=== PATIENT | male | born 1970 | race Caucasian/White ===

== ENCOUNTER 2022-10-10 08:49 | Day surgery (SDC) | payer OTHER ==
[2022-10-08 14:03] VITALS: BMI 37.5
[~2022-10-10 08:49] MED LIST: LACTATED RINGERS 1,000 ML IV SCH; LIDOCAINE 1% (10MG/ML) FOR IV START INTRADERMA PRN
[2022-10-10 09:17] VITALS: RESP 16; TEMP 97.1
[2022-10-10] MEDS ORDERED: LIDOCAINE 2% INJ 20 MG/ML (2 ML VIAL) ONE (10:03)
[2022-10-10] MEDS ORDERED: PROPOFOL 10 MG/ML 20 ML VIAL IV ONE (10:03)
--- NOTE | 2022-10-10 10:08 | P.GSHP ---
History of Present Illness H&P Date: 10/10/22 Chief Complaint: Screening colonoscopy This a 52-year-old male presents today for screening colonoscopy. Patient denies a significant GI complaints Past Medical History Past Medical History: Hyperlipidemia, Hypertension Additional Past Medical History / Comment(s): gout, no rx for cholesterol, History of Any Multi-Drug Resistant Organisms: None Reported Past Surgical History: Heart Catheterization Past Anesthesia/Blood Transfusion Reactions: No Reported Reaction Smoking Status: Current every day smoker - Past Family History Mother Family Medical History: Cancer Medications and Allergies Home Medications Medication Instructions Recorded Confirmed Type Losartan Potassium [Cozaar] 100 mg PO QAM 10/08/22 10/08/22 History Losartan/Hydrochlorothiazide 1 tab PO DAILY 10/08/22 10/08/22 History [Losartan-Hctz 100-12.5 mg Tab] Allergies Allergy/AdvReac Type Severity Reaction Status Date / Time bee venom protein (honey bee) Allergy Anaphylaxis Verified 10/10/22 09:08 Penicillins Allergy Unknown Verified 10/10/22 09:08 Childhood Surgical - Exam Vital Signs Temp Pulse Resp BP Pulse Ox 97.1 F L 77 16 193/77 96 10/10/22 09:16 10/10/22 09:16 10/10/22 09:16 10/10/22 09:16 10/10/22 09:16 - General well developed, well nourished, no distress - Eyes PERRL - ENT normal pinna - Neck no masses - Respiratory normal expansion - Cardiovascular Rhythm: regular - Abdomen Abdomen: soft, non tender Assessment and Plan Assessment: We'll perform screening colonoscopy
--- NOTE | 2022-10-10 10:20 | P.OP ---
Date of Procedure: 10/10/22 Preoperative Diagnosis: Screening colonoscopy Postoperative Diagnosis: Transverse colon polyp Rectal polyp Internal and external hemorrhoids Procedure(s) Performed: Colonoscopy Anesthesia: MAC Surgeon: Jax Toney Pathology: other (Rectal polyp, transverse colon polyp) Condition: stable Disposition: PACU Description of Procedure: The patient's placed on the endoscopy table in the lateral position. He received IV sedation. Digital rectal exam performed this revealed external hemorrhoids. The flexible colonoscope was then placed patient anus and passed throughout the entire colon. The ileocecal valve was visualized. The cecum, ascending colon appeared normal. In the transverse colon there was a small polyp seen was removed with the cold forcep. Scope was brought back and the remainder the transverse colon and descending colon appeared normal. The sigmoid colon appeared normal. In the rectum there was a small polyp seen was removed the cold forcep. And then the scope was brought back through the anus and internal and external hemorrhoids are noted.
[2022-10-10 10:37] VITALS: BP 127/77; PULSE 76
== END 2022-10-10 11:18 | disposition home or self-care (01) ==
LOC: ORWHC2ENDO 08:49
PROVIDERS: ATTEND Surgery
DX: Z12.11 Encounter for screening for malignant neoplasm of colon (principal); K62.1 Rectal polyp; K63.5 Polyp of colon; K64.4 Residual hemorrhoidal skin tags; K64.8 Other hemorrhoids; E78.5 Hyperlipidemia, unspecified; I10 Essential (primary) hypertension; F17.200 Nicotine dependence, unspecified, uncomplicated; Z88.0 Allergy status to penicillin; Z91.030 Bee allergy status
CPT/HCPCS: 88305; 45380; J2704; J2001